=== PATIENT | male | born 1985 | race Caucasian/White ===

== ENCOUNTER 2022-11-19 11:25 | Emergency (ER) | payer BC, OTHER ==
[2022-11-19] MEDS: Cyclobenzaprine 10 MG Tab PO ONE (12:54)
[2022-11-19] MEDS: Ketorolac 10 MG Tab PO ONE (12:54)
[2022-11-19 14:51] VITALS: BP 142/88; PULSE 77
== END 2022-11-19 12:58 | disposition home or self-care (01) ==
LOC: VM.ED 11:25
DX: S16.1XXA Strain of muscle, fascia and tendon at neck level, initial encounter (principal); J45.909 Unspecified asthma, uncomplicated; Z72.0 Tobacco use; Z79.899 Other long term (current) drug therapy; V89.2XXA Person injured in unspecified motor-vehicle accident, traffic, initial encounter; Y92.410 Unspecified street and highway as the place of occurrence of the external cause
CPT/HCPCS: 72125; 99283; 99284; A9270